=== PATIENT | male | born 1950 | race Caucasian/White ===

== ENCOUNTER 2019-01-06 12:50 | Inpatient (IN) | payer MEDICARE, BC ==
[2019-01-06] MEDS: Sodium Chloride 0.9% 10 ML Syringe FLUSH PRN (14:08)
[2019-01-06] MEDS: cefTRIAXone 1 GM Vial IVPUSH SCH (14:08)
[2019-01-06] MEDS: Aspirin 81 MG Tab.Chew PO SCH (14:09)
[2019-01-06] MEDS ORDERED: hydrOXYzine HCl 25 MG Tab PO PRN (17:18)
[2019-01-06] MEDS ORDERED: Nitroglycerin 0.4 MG Tab.SL SL PRN (17:30)
[2019-01-06] MEDS: ClonazePAM 0.5 MG Tab PO SCH (20:59)
[2019-01-06] MEDS: Gabapentin 100 MG Cap PO SCH (20:59)
[2019-01-06] MEDS: Losartan 50 MG Tab PO SCH (20:59)
[2019-01-06] MEDS: hydrALAZINE 50 MG Tab PO SCH (20:59)
[2019-01-06] MEDS: metFORMIN 500 MG Tab PO SCH (20:59)
[2019-01-06] MEDS: atorvaSTATin 10 MG Tab PO SCH (21:00)
[2019-01-07] MEDS ORDERED: Labetalol 100 MG Tab PO SCH (09:00)
[2019-01-07 09:29] LABS: ANION GAP 15.1 mmol/L (5-15); CHLORIDE,CL 99 mmol/L (98-115); SODIUM,NA 137 mmol/L (136-145)
[2019-01-07] MEDS: Losartan 50 MG Tab PO SCH ×2 (09:49→20:21)
[2019-01-07] MEDS: Gabapentin 100 MG Cap PO SCH ×2 (09:50→20:22)
[2019-01-07] MEDS: hydrALAZINE 50 MG Tab PO SCH ×3 (09:50→20:20)
[2019-01-07] MEDS: metFORMIN 500 MG Tab PO SCH ×2 (09:50→20:21)
[2019-01-07] MEDS: predniSONE 5 MG Tab PO SCH (09:50)
[2019-01-07] MEDS: Aspirin 81 MG Tab.Chew PO SCH (09:51)
[2019-01-07] MEDS: Clopidogrel 75 MG Tab PO SCH (09:52)
[2019-01-07] MEDS: Pantoprazole 40 MG Tab.CR PO SCH (09:53)
[2019-01-07] MEDS: Liraglutide (rDNA Origin) 0.6 MG/0.1 ML 3 ML Pen SUBCUT SCH (09:53)
[2019-01-07] MEDS: amLODIPine 5 MG Tab PO SCH (09:53)
--- NOTE | 2019-01-07 11:34 | CR ---
[id number] RAD/RAD Ankle Right 3V Min; [id number] RAD/RAD Foot Right 3V Min Exam: RAD Foot Right 3V Min, RAD Ankle Right 3V Min Indication:POSTERIOR ANKLE AND HEEL PAIN. Comparison: No prior imaging for comparison. Discussion: Mild changes of osteoarthritis throughout the foot including the tibiotalar joint. 4 mm osteochondral body versus accessory ossicle projecting over the posterior recess of the tibiotalar joint on lateral view. Chronic appearing small avulsion fragments overlying the lateral recess of the ankle mortise. Soft tissue swelling in the lower leg extending into the hindfoot extending along the medial aspect of the hindfoot. No evidence of an acute fracture. No AVN or erosive changes. Diffuse bone demineralization. Impression: Soft tissue swelling without evidence of an acute fracture. Other findings are described above. Fidel De Dios MD 01/07/19 1046 Thank you for allowing us to participate in the care of your patient.
[2019-01-07] MEDS: FLAXSEED OIL 1000 MG PO SCH (11:49)
--- NOTE | 2019-01-07 11:49 | PCM.PN ---
- General Info Date of Service: 01/07/19 Functional Status: Reports: Pain Controlled, Tolerating Diet, Ambulating, Urinating. Denies: New Symptoms - Review of Systems General: Denies: Fever, Chills HEENT: Denies: Headaches Pulmonary: Denies: Shortness of Breath Cardiovascular: Denies: Chest Pain, Edema Gastrointestinal: Reports: Decreased Appetite, Nausea. Denies: Vomiting Genitourinary: Reports: No Symptoms Musculoskeletal: Reports: Other (right ankle and heel pain with swelling) Skin: Reports: Other (erythematous blister to right inner ankle with small area redness below knee and redness in right medial thigh; chronic callus to heels with cracking) Neurological: Denies: Dizziness, Headache Psychiatric: Reports: No Symptoms - Patient Data Vitals - Most Recent: Last Vital Signs Temp 97.7 F 01/07/19 06:21 Pulse 95 01/07/19 06:21 Resp 16 01/07/19 06:21 BP 129/84 01/07/19 09:53 Pulse Ox 95 01/07/19 06:21 Weight - Most Recent: 211 lb 4.8 oz I&O - Last 24 Hours: Intake & Output 01/06/19 01/07/19 01/07/19 22:59 06:59 14:59 Intake Total 1100 150 Balance 1100 150 Lab Results Last 24 Hours: Laboratory Results - last 24 hr 01/07/19 01/07/19 Range/Units 08:45 08:45 WBC 13.67 H (5.00-10.00) 10^3/uL RBC 4.58 (4.50-6.00) 10^6/uL Hgb 13.4 (13.0-17.0) g/dL Hct 40.5 (40.0-52.0) % MCV 88.4 (82.0-92.0) fL MCH 29.3 (27.0-31.0) pg MCHC 33.1 (32.0-36.0) g/dL RDW 14.3 (11.5-14.5) % Plt Count 187 (150-400) 10^3/uL MPV 10.4 (7.4-10.4) fL Immature Gran % (Auto) 0.4 (0.0-5.0) % Neut % (Auto) 83.0 H (50.0-70.0) % Lymph % (Auto) 7.4 L (20.0-40.0) % Bradford % (Auto) 7.8 (2.0-8.0) % Eos % (Auto) 1.2 (1.0-3.0) % Baso % (Auto) 0.2 (0.0-1.0) % Immature Gran # (Auto) 0.06 (0.00-0.50) 10^3/uL Neut # (Auto) 11.35 H (2.50-7.00) 10^3/uL Lymph # (Auto) 1.01 (1.00-4.00) 10^3/uL Bradford # (Auto) 1.06 H (0.10-0.80) 10^3/uL Eos # (Auto) 0.16 (0.10-0.30) 10^3/uL Baso # (Auto) 0.03 (0.00-0.10) 10^3/uL Sodium 137 (136-145) mmol/L Potassium 4.2 (3.3-5.3) mmol/L Chloride 99 (98-115) mmol/L Carbon Dioxide 27.1 (21.0-32.0) mmol/L Anion Gap 15.1 H (5-15) mmol/L BUN 17 (6-25) mg/dL Creatinine 0.86 (0.51-1.17) mg/dL Est Cr Clr Drug Dosing 82.53 mL/min Estimated GFR (MDRD) > 60 mL/min Glucose 187 H (75 - 99) mg/dL Calcium 9.3 (8.7-10.3) mg/dL Total Bilirubin 1.0 (0.2-1.0) mg/dL AST 16 (15-37) U/L ALT 30 (12-78) U/L Alkaline Phosphatase 57 (46-116) IU/L Total Protein 7.3 (6.4-8.2) g/dL Albumin 3.01 (3.00-4.80) g/dL Med Orders - Current: Current Medications Amlodipine Besylate (Norvasc) 10 mg PO DAILY [facility] Last Admin: 01/07/19 09:53 Dose: 10 mg Aspirin (Halfprin) 81 mg PO WITHBREAKFAST [facility] Atorvastatin Calcium (Lipitor) 20 mg PO BEDTIME [facility] Last Admin: 01/06/19 21:00 Dose: 20 mg Ceftriaxone Sodium (Rocephin) 1 gm IVPUSH Q24H [facility] Last Admin: 01/06/19 14:08 Dose: 1 gm Clonazepam (Klonopin) 0.5 mg PO BEDTIME [facility] Last Admin: 01/06/19 20:59 Dose: 0.5 mg Clopidogrel Bisulfate (Plavix) 75 mg PO DAILY [facility] Last Admin: 01/07/19 09:52 Dose: 75 mg Gabapentin (Neurontin) 100 mg PO BID [facility] Last Admin: 01/07/19 09:50 Dose: 100 mg Hydralazine HCl (Apresoline) 50 mg PO TID [facility] Last Admin: 01/07/19 09:50 Dose: 50 mg Hydroxyzine HCl (Atarax) 25 mg PO QID PRN PRN Reason: Itching Liraglutide (Victoza) 1.2 mg SUBCUT DAILY [facility] Last Admin: 01/07/19 09:53 Dose: 1.2 mg Losartan Potassium (Cozaar) 50 mg PO BID [facility] Last Admin: 01/07/19 09:49 Dose: 50 mg Metformin HCl (Glucophage) 500 mg PO BID [facility] Last Admin: 01/07/19 09:50 Dose: 500 mg Nebivolol (Bystolic) 20 mg PO BEDTIME [facility] Last Admin: 01/06/19 21:00 Dose: 20 mg Nitroglycerin (Nitrostat) 0.4 mg SL ASDIRECTED PRN PRN Reason: Chest Pain Pantoprazole Sodium (Protonix) 40 mg PO DAILY [facility] Last Admin: 01/07/19 09:53 Dose: 40 mg Etodolac Er 500mg (Tab - Ptom) 1 each PO BID [facility] Leflunomide 10mg Tab (- Ptom) 1 each PO BEDTIME [facility] Flaxseed Oil 1,000mg (Cap - Ptom) 1 each PO DAILY [facility] Prednisone (Prednisone) 2.5 mg PO DAILY [facility] Last Admin: 01/07/19 09:50 Dose: 2.5 mg Sodium Chloride (Saline Flush) 10 ml FLUSH Q8HR PRN PRN Reason: keep vein open Last Admin: 01/06/19 14:08 Dose: 10 ml Discontinued Medications Aspirin (Aspirin) 324 mg PO DAILY [facility] Last Admin: 01/07/19 09:51 Dose: 162 mg Leflunomide (Arava) 10 mg PO BEDTIME [facility] Last Admin: 01/06/19 21:02 Dose: Not Given Naproxen (Naproxen Sodium) 220 mg PO BID PRN PRN Reason: Pain - Exam Quality Assessment: No: Supplemental Oxygen, Urine Catheter, DVT Prophylaxis ( Score 2. On ASA/plavix), Skin Breakdown General: Alert, Oriented, Cooperative, No Acute Distress Lungs: Clear to Auscultation, Normal Respiratory Effort Cardiovascular: Regular Rate, Regular Rhythm, No Murmurs Extremities: No Pedal Edema Peripheral Pulses: 2+: Dorsalis Pedis (L), Dorsalis Pedis (R) Skin: Warm, Dry, Intact, Other (large area of erythemaous blister/macular lesion to medial malleolus, tender, several areas numb from prior back surgery, quarter sized erythematous macule to medial mid-ocampo, mild erythema to inner groin, large cracks x 2 to heel) Neurological: Normal Speech Psy/Mental Status: Alert, Normal Affect, Normal Mood - Problem List Review Problem List Initiated/Reviewed/Updated: Yes - My Orders Last 24 Hours: My Active Orders 01/07/19 09:59 Foot Comp Min 3V Rt [CR] Routine 01/07/19 11:00 Patient's Own Medication [Ptom] 1 each PO BID 01/08/19 05:11 CBC WITH AUTO DIFF [HEME] AM ESR [SEDIMENTATION RATE MANUAL] [HEME] AM 01/08/19 08:00 Aspirin [Halfprin] 81 mg PO WITHBREAKFAST - Plan Plan:: HPI: This is a 68 year old male who presented to the [facility] with concerns of right leg pain, swelling, and redness. Patient reports over the weekend he used his right heel to kick a frozen PTO off a truck. The following day he noticed pain and swelling to the ankle and then subsequently it started turning red. He reports he had chills and vomiting the day prior to admission. He has a history of discogenic disease in the lumbar region with previous fusion of L4-5 and L5-S1 levels. He has limited sensation in his right leg and foot d/t this. Pertinent Clinic work-up: WBC 14.6 with left shift ESR 57 BC x 2 pending US right lower extremity: No evidence of DVT. Patient was subsequently admitted for IV antibiotics and further monitoring. Primary Assessment/Plan: Right leg cellulitis. WBC 13.67 with left shift. CMP unremarkable. Erythematous areas marked and dated. Continue IV rocephin. Right lower ankle/heel pain. Xray of ankle & foot obtained which noted "Soft tissue swelling without evidence of an acute fracture. Other findings as described above." No AVN or erosive changes, mild OA throughout foot, chronic small avulsion fragments overlying lateral recess of ankle mortise. Continue with etodolac BID and ice/elevation/compression PRN. Secondary Assessment/Plan: HTN, essential. On amlodipine 10 mg daily, hydralazine 50 mg TID, losartan 50 mg BID, bystolic 20 mg at HS. Peripheral edema. On lasix 20 mg daily PRN. CAD. On ASA 81 mg daily, plavix 75 mg daily. LINDA. HLD, mixed. On lipitor 20 mg at HS, fish oil 1000 mg daily. LDL 71 (12/14/18). T2DM. On victoza 1.2 mg daily, metformin 500 mg BID. A1c 6.6 (12/14/18). Obesity. Seropositive RA. On etodolac 500 mg BID, leflunomide 10 mg daily, prednisone 2.5 mg daily. Follows with rheumatology. S/P lumbar fusion. Peripheral neuropathy. On gabapentin 100 mg BID. Lumbar discogenic disc disease. REID. On clonazepam 0.5 mg at HS, hydroxyzine 25 mg QID PRN. GERD. On lansoprazole 15 mg daily. DVT prophylaxis. Score 2. Overall plan: Continue with IV rocephin. May need to consider adding second agent given diabetic status. Recheck labs in AM.
[2019-01-07] MEDS: ETODOLAC 500 MG PO SCH ×2 (11:51→20:23)
[2019-01-07] MEDS: cefTRIAXone 1 GM Vial IVPUSH SCH (14:24)
[2019-01-07] MEDS: ClonazePAM 0.5 MG Tab PO SCH (20:22)
[2019-01-07] MEDS: atorvaSTATin 10 MG Tab PO SCH (20:22)
[2019-01-07] MEDS: LEFLUNOMIDE 10 MG PO SCH (20:23)
[2019-01-08] MEDS: Gabapentin 100 MG Cap PO SCH ×2 (08:21→20:18)
[2019-01-08] MEDS: amLODIPine 5 MG Tab PO SCH (08:21)
[2019-01-08] MEDS: metFORMIN 500 MG Tab PO SCH ×2 (08:21→20:18)
[2019-01-08] MEDS: predniSONE 5 MG Tab PO SCH (08:21)
[2019-01-08] MEDS: Aspirin 81 MG Tab.EC PO SCH (08:21)
[2019-01-08] MEDS: Clopidogrel 75 MG Tab PO SCH (08:21)
[2019-01-08] MEDS: hydrALAZINE 50 MG Tab PO SCH ×3 (08:21→20:15)
[2019-01-08] MEDS: Losartan 50 MG Tab PO SCH ×2 (08:21→20:18)
[2019-01-08] MEDS: Pantoprazole 40 MG Tab.CR PO SCH (08:22)
[2019-01-08] MEDS: ETODOLAC 500 MG PO SCH ×2 (08:24→20:20)
[2019-01-08] MEDS: Liraglutide (rDNA Origin) 0.6 MG/0.1 ML 3 ML Pen SUBCUT SCH (08:25)
[2019-01-08] MEDS ORDERED: predniSONE 5 MG Tab PO SCH (09:00)
[2019-01-08] MEDS ORDERED: predniSONE 5 MG Tab PO ONE (10:07)
[2019-01-08] MEDS: FLAXSEED OIL 1000 MG PO SCH (10:32)
--- NOTE | 2019-01-08 12:46 | PCM.PN ---
- General Info Date of Service: 01/08/19 Functional Status: Reports: Pain Controlled, Tolerating Diet, Ambulating, Urinating. Denies: New Symptoms - Review of Systems General: Denies: Fever, Chills Pulmonary: Denies: Shortness of Breath Cardiovascular: Denies: Chest Pain, Edema Gastrointestinal: Denies: Abdominal Pain, Nausea Musculoskeletal: Reports: Shoulder Pain (right shoulder), Leg Pain (right), Foot Pain (right) Skin: Reports: Other (blister area continues with improved erythema) Neurological: Denies: Dizziness, Headache Psychiatric: Reports: No Symptoms - Patient Data Vitals - Most Recent: Last Vital Signs Temp 98.1 F 01/08/19 07:00 Pulse 80 01/08/19 07:00 Resp 16 01/08/19 07:00 BP 123/76 01/08/19 08:21 Pulse Ox 94 L 01/08/19 07:00 Weight - Most Recent: 211 lb 4.8 oz I&O - Last 24 Hours: Intake & Output 01/07/19 01/08/19 01/08/19 22:59 06:59 14:59 Intake Total 700 150 Balance 700 150 Lab Results Last 24 Hours: Laboratory Results - last 24 hr 01/08/19 Range/Units 07:20 WBC 9.25 (5.00-10.00) 10^3/uL RBC 4.43 L (4.50-6.00) 10^6/uL Hgb 13.1 (13.0-17.0) g/dL Hct 39.1 L (40.0-52.0) % MCV 88.3 (82.0-92.0) fL MCH 29.6 (27.0-31.0) pg MCHC 33.5 (32.0-36.0) g/dL RDW 13.9 (11.5-14.5) % Plt Count 198 (150-400) 10^3/uL MPV 10.7 H (7.4-10.4) fL Immature Gran % (Auto) 0.4 (0.0-5.0) % Neut % (Auto) 75.1 H (50.0-70.0) % Lymph % (Auto) 11.7 L (20.0-40.0) % Sutter % (Auto) 8.3 H (2.0-8.0) % Eos % (Auto) 4.2 H (1.0-3.0) % Baso % (Auto) 0.3 (0.0-1.0) % Immature Gran # (Auto) 0.04 (0.00-0.50) 10^3/uL Neut # (Auto) 6.94 (2.50-7.00) 10^3/uL Lymph # (Auto) 1.08 (1.00-4.00) 10^3/uL [place]utter # (Auto) 0.77 (0.10-0.80) 10^3/uL Eos # (Auto) 0.39 H (0.10-0.30) 10^3/uL Baso # (Auto) 0.03 (0.00-0.10) 10^3/uL ESR 90 H (0-15) mm/hr Deng Results Last 24 Hours: Microbiology 01/06/19 15:00 Gram Stain - Final Wound Med Orders - Current: Current Medications Amlodipine Besylate (Norvasc) 10 mg PO DAILY [facility] Last Admin: 01/08/19 08:21 Dose: 10 mg Aspirin (Halfprin) 81 mg PO WITHBREAKFAST [facility] Last Admin: 01/08/19 08:21 Dose: 81 mg Atorvastatin Calcium (Lipitor) 20 mg PO BEDTIME [facility] Last Admin: 01/07/19 20:22 Dose: 20 mg Ceftriaxone Sodium (Rocephin) 1 gm IVPUSH Q24H [facility] Last Admin: 01/07/19 14:24 Dose: 1 gm Clonazepam (Klonopin) 0.5 mg PO BEDTIME [facility] Last Admin: 01/07/19 20:22 Dose: 0.5 mg Clopidogrel Bisulfate (Plavix) 75 mg PO DAILY [facility] Last Admin: 01/08/19 08:21 Dose: 75 mg Gabapentin (Neurontin) 100 mg PO BID [facility] Last Admin: 01/08/19 08:21 Dose: 100 mg Hydralazine HCl (Apresoline) 50 mg PO TID [facility] Last Admin: 01/08/19 08:21 Dose: 50 mg Hydroxyzine HCl (Atarax) 25 mg PO QID PRN PRN Reason: Itching Liraglutide (Victoza) 1.2 mg SUBCUT DAILY [facility] Last Admin: 01/08/19 08:25 Dose: 1.2 mg Losartan Potassium (Cozaar) 50 mg PO BID [facility] Last Admin: 01/08/19 08:21 Dose: 50 mg Metformin HCl (Glucophage) 500 mg PO BID [facility] Last Admin: 01/08/19 08:21 Dose: 500 mg Nebivolol (Bystolic) 20 mg PO BEDTIME [facility] Last Admin: 01/07/19 20:21 Dose: 20 mg Nitroglycerin (Nitrostat) 0.4 mg SL ASDIRECTED PRN PRN Reason: Chest Pain Etodolac Er 500mg (Tab - Ptom) 1 each PO BID [facility] Last Admin: 01/08/19 08:24 Dose: 1 each Leflunomide 10mg Tab (- Ptom) 1 each PO BEDTIME [facility] Last Admin: 01/07/19 20:23 Dose: 1 each Flaxseed Oil 1,000mg (Cap - Ptom) 1 each PO DAILY [facility] Last Admin: 01/08/19 10:32 Dose: [address] (Mg Caps Own Med) 0 each PO ACBREAKFAST [facility] Prednisone (Prednisone) 7.5 mg PO WITHBREAKFAST [facility] Sodium Chloride (Saline Flush) 10 ml FLUSH Q8HR PRN PRN Reason: keep vein open Last Admin: 01/06/19 14:08 Dose: 10 ml Discontinued Medications Aspirin (Aspirin) 324 mg PO DAILY [facility] Last Admin: 01/07/19 09:51 Dose: 162 mg Leflunomide (Arava) 10 mg PO BEDTIME [facility] Last Admin: 01/06/19 21:02 Dose: Not Given Naproxen (Naproxen Sodium) 220 mg PO BID PRN PRN Reason: Pain Pantoprazole Sodium (Protonix) 40 mg PO DAILY [facility] Last Admin: 01/08/19 08:22 Dose: 40 mg Prednisone (Prednisone) 2.5 mg PO DAILY [facility] Last Admin: 01/08/19 08:21 Dose: 2.5 mg Prednisone (Prednisone) 2.5 mg PO WITHBREAKFAST [facility] Last Admin: 01/08/19 10:15 Dose: Not Given Prednisone (Prednisone) 2.5 mg PO WITHBREAKFAST [facility] Prednisone (Prednisone) 2.5 mg PO ONETIME ONE Stop: 01/08/19 10:08 Last Admin: 01/08/19 10:32 Dose: 2.5 mg - Exam Quality Assessment: No: Supplemental Oxygen, Urine Catheter, DVT Prophylaxis, Skin Breakdown General: Alert, Oriented, Cooperative, No Acute Distress Lungs: Clear to Auscultation, Normal Respiratory Effort Cardiovascular: Regular Rate, Regular Rhythm, No Murmurs Extremities: No Pedal Edema, Limited Range of Motion (of right shoulder d/t pain ), Other (tenderness elicited over right bicep and ac joint) Skin: Warm, Dry, Intact, Other (right medial malleolus: erythematous blister/ macular lesion present with surrounding erythema; erythema has improved at this area. Right medial thigh and ocampo: erythema greatly improved. Right heel: two cracks/fissures present with small amount of black coloring noted to most posterior one, rough callouses present. ) Neurological: Normal Speech Psy/Mental Status: Alert, Normal Affect, Normal Mood - Problem List Review Problem List Initiated/Reviewed/Updated: Yes - My Orders Last 24 Hours: My Active Orders 01/08/19 08:00 Aspirin [Halfprin] 81 mg PO WITHBREAKFAST 01/08/19 09:23 Communication Order [RC] ROUTINE 01/09/19 05:11 CBC WITH AUTO DIFF [HEME] AM 01/09/19 07:30 Patient's Own Medication [Ptom] 0 each PO ACBREAKFAST 01/09/19 08:00 predniSONE 7.5 mg PO WITHBREAKFAST - Plan Plan:: HPI: This is a 68 year old male who presented to the [facility] with concerns of right leg pain, swelling, and redness. Patient reports over the weekend he used his right heel to kick a frozen PTO off a truck. The following day he noticed pain and swelling to the ankle and then subsequently it started turning red. He reports he had chills and vomiting the day prior to admission. He has a history of discogenic disease in the lumbar region with previous fusion of L4-5 and L5-S1 levels. He has limited sensation in his right leg and foot d/t this. Pertinent Clinic work-up: WBC 14.6 with left shift ESR 57 BC x 2 pending US right lower extremity: No evidence of DVT. Patient was subsequently admitted for IV antibiotics and further monitoring. Primary Assessment/Plan: Right leg cellulitis, improving. WBC 9.25 with left shift. BC x 2 showing no growth. Gram stain negative. Erythematous areas marked and dated. Continue IV rocephin. Concern for underlying peripheral arterial disease. Will need NIMA as outpatient. CBC in AM. Right lower ankle/heel pain. Xray of ankle & foot obtained which noted "Soft tissue swelling without evidence of an acute fracture. Other findings as described above." No AVN or erosive changes, mild OA throughout foot, chronic small avulsion fragments overlying lateral recess of ankle mortise. Continue with etodolac BID and ice/elevation/compression PRN. RA flare-up of right shoulder. ESR 90. Patient typically takes 5 mg daily of prednisone for 2-3 days during a flare-up so will provide this for him. May use heat/ice PRN. Continue etodolac and leflunomide as before. Follows with rheumatology. Secondary Assessment/Plan: HTN, essential. On amlodipine 10 mg daily, hydralazine 50 mg TID, losartan 50 mg BID, bystolic 20 mg at HS. Peripheral edema. On lasix 20 mg daily PRN. CAD. On ASA 81 mg daily, plavix 75 mg daily. LINDA. HLD, mixed. On lipitor 20 mg at HS, fish oil 1000 mg daily. LDL 71 (12/14/18). T2DM. On victoza 1.2 mg daily, metformin 500 mg BID. A1c 6.6 (12/14/18). Obesity. S/P lumbar fusion. Peripheral neuropathy. On gabapentin 100 mg BID. Lumbar discogenic disc disease. REID. On clonazepam 0.5 mg at HS, hydroxyzine 25 mg QID PRN. GERD. On lansoprazole 15 mg daily. DVT prophylaxis. Score 2. Overall plan: Continue with IV rocephin. Will likely be able to be discharged tomorrow on oral antibiotics with close follow-up.
[2019-01-08] MEDS: cefTRIAXone 1 GM Vial IVPUSH SCH (14:39)
[2019-01-08] MEDS: Sodium Chloride 0.9% 10 ML Syringe FLUSH PRN (14:43)
[2019-01-08] MEDS: atorvaSTATin 10 MG Tab PO SCH (20:18)
[2019-01-08] MEDS: ClonazePAM 0.5 MG Tab PO SCH (20:18)
[2019-01-08] MEDS: LEFLUNOMIDE 10 MG PO SCH (20:20)
[2019-01-09] MEDS ORDERED: LANSOPRAZOLE 15 MG PO SCH (07:30)
[2019-01-09] MEDS ORDERED: predniSONE 5 MG Tab PO SCH ×2 (08:00)
[2019-01-09] MEDS ORDERED: predniSONE 10 MG Tab PO SCH (08:00)
[2019-01-09] MEDS: Gabapentin 100 MG Cap PO SCH (08:40)
[2019-01-09] MEDS: Clopidogrel 75 MG Tab PO SCH (08:40)
[2019-01-09] MEDS: hydrALAZINE 50 MG Tab PO SCH (08:40)
[2019-01-09] MEDS: Aspirin 81 MG Tab.EC PO SCH (08:40)
[2019-01-09] MEDS: Losartan 50 MG Tab PO SCH (08:40)
[2019-01-09] MEDS: metFORMIN 500 MG Tab PO SCH (08:40)
[2019-01-09] MEDS: FLAXSEED OIL 1000 MG PO SCH (08:41)
[2019-01-09] MEDS: amLODIPine 5 MG Tab PO SCH (08:41)
[2019-01-09] MEDS: ETODOLAC 500 MG PO SCH (08:41)
[2019-01-09] MEDS: Liraglutide (rDNA Origin) 0.6 MG/0.1 ML 3 ML Pen SUBCUT SCH (08:43)
--- NOTE | 2019-01-09 11:20 | PCM.DCSUM1 ---
Discharge Summary - Discharge Data Discharge Date: 01/09/19 Discharge Disposition: Home, Self-Care 01 Condition: Good - Referral to Home Health Primary Care Physician: Lilly Maldonado MD - Patient Instructions Diet: Heart Healthy Diet, Diabetic Diet Activity: As Tolerated, Elevate Extremity, No Strenuous Activities, Rest and Relax Today Driving: Do Not Drive Showering/Bathing: May Shower, No Tub Bathing/Swimming Wound/Incision Care: Change Dressing Daily (use telfa (non-stick dressing); cleanse with warm water and soap; do not scrub area.) Notify Provider of: Fever (101 degrees F or higher), Increased Pain, Swelling and Redness, Drainage (increased amount or purulent (infectious) looking) Other/Special Instructions: You will be set up for an ankle brachial index (NIMA ) test of the right leg to assess for aterial disease at [facility]. - Discharge Plan *PRESCRIPTION DRUG MONITORING PROGRAM REVIEWED*: Not Applicable *COPY OF PRESCRIPTION DRUG MONITORING REPORT IN PATIENT CARLEEN: Not Applicable Prescriptions/Med Rec: cephALEXin [Keflex] 500 mg PO Q12H 3 Days #6 cap Home Medications: Home Meds Aspirin [Adult Low Dose Aspirin EC] 81 mg PO DAILY 01/06/19 [History] Cinnamon Bark [Cinnamon] 500 mg PO DAILY 01/06/19 [History] Clopidogrel [Plavix] 75 mg PO DAILY 01/06/19 [History] Flaxseed Oil [Flax Oil] 1,000 mg PO DAILY 01/06/19 [History] Furosemide [Lasix] 20 mg PO DAILY PRN 01/06/19 [History] Gabapentin [Neurontin] 100 mg PO BID 01/06/19 [History] Lansoprazole [Prevacid] 15 mg PO DAILY 01/06/19 [History] Leflunomide [Arava] 10 mg PO BEDTIME 01/06/19 [History] Liraglutide [Victoza] 1.2 mg SUBCUT DAILY 01/06/19 [History] Lodine Xl 500 mg PO BID 01/06/19 [History] Losartan [Cozaar] 50 mg PO BID 01/06/19 [History] Nebivolol HCl [Bystolic] 20 mg PO BEDTIME 01/06/19 [History] Nitroglycerin [Nitrostat] 0.4 mg SL ASDIRECTED 01/06/19 [History] [place]-3/DHA/Epa/Fish Oil [Fish Oil 1,000 mg Softgel] 1,000 mg PO DAILY 01/06/19 [History] Rup Rub 1 applic TOP TID PRN 01/06/19 [History] Sildenafil [Revatio] 60 - 100 mg PO ASDIRECTED PRN 01/06/19 [History] amLODIPine Besylate [Norvasc] 10 mg PO DAILY 01/06/19 [History] atorvaSTATin [Lipitor] 20 mg PO BEDTIME 01/06/19 [History] clonazePAM [Klonopin] 0.5 mg PO BEDTIME 01/06/19 [History] hydrALAZINE [Apresoline] 50 mg PO TID 01/06/19 [History] hydrOXYzine HCl [hydrOXYzine] 25 mg PO QID PRN 01/06/19 [History] metFORMIN HCl [Metformin HCl] 500 mg PO BID 01/06/19 [History] Naproxen Sodium [Aleve] 220 mg PO BID PRN #0 01/09/19 [Rx] cephALEXin [Keflex] 500 mg PO Q12H 3 Days #6 cap 01/09/19 [Rx] predniSONE [Prednisone] 2.5 mg PO DAILY #0 01/09/19 [Rx] Referrals: Sol Rollins HAIR ASSISTANT [Ordering Only Provider] - 01/12/19 (Please call and schedule an appointment during clinic hours. ) - Discharge Summary/Plan Comment DC Time >30 min.: Yes Discharge Summary/Plan Comment: Date of admission: 01/06/19 Date of discharge: 01/09/19 Admitting diagnosis: Primary: Acute cellulitis of right leg, Acute right ankle & heel pain Secondary: Seropositive RA, Essential HTN, Mixed HLD, CAD, LINDA, T2DM, Obesity , S/P lumbar fusion, Lumbar discogenic disc disease, REID, GERD Final diagnosis: Primary: Acute cellulitis of right leg, improving; Rule out peripheral arterial disease of right leg; Acute right ankle & heel pain, improving; Acute seropositive RA flare-up of shoulders, improving. Secondary: Seropositive RA, Essential HTN, Mixed HLD, CAD, LINDA, T2DM, Obesity , S/P lumbar fusion, Lumbar discogenic disc disease, REID, GERD Procedures performed: None Brief History: This is a 68 year old male who presented to the [facility] with concerns of right leg pain, swelling, and redness. Patient reports over the weekend he used his right heel to kick a frozen PTO off a truck. The following day he noticed pain and swelling to the ankle and then subsequently it started turning red. He reports he had chills and vomiting the day prior to admission. He has a history of discogenic disease in the lumbar region with previous fusion of L4-5 and L5-S1 levels. He has limited sensation in his right leg and foot d/t this. Pertinent Clinic work-up: WBC 14.6 with left shift ESR 57 BC x 2 pending US right lower extremity: No evidence of DVT. Patient was subsequently admitted for IV antibiotics and further monitoring. Hospital Course: The patient's hospital course progressed as expected. He was given IV rocephin daily with improvement in WBC to 8.4 without neutrophilia. Blood cultures x 2 negative to date. He remained afebrile and hemodynamically stable. The day of discharge the blistered area of cellulitis did start to weep , but was not open. This was cleansed and covered with a telfa. He had mild compression of his extremity with an susanna wrap as well as elevation. Xray of ankle & foot obtained which noted "Soft tissue swelling without evidence of an acute fracture. Other findings as described above." No AVN or erosive changes, mild OA throughout foot, chronic small avulsion fragments overlying lateral recess of ankle mortise. He did not require an increase in pain medications beyond his typical etodolac BID. Patient did suffer an RA flare-up of his shoulder during hospitalization with an ESR of 90. Reported that he typically increases his daily prednisone to 5 mg daily for 2-3 days during flare-ups and this was done. New medications on discharge: -Keflex 500 mg po BID x 3 days (start on 01/10/19) Changes to home medications on discharge: -Prednisone 5 mg po daily x 1 more dose, then resume 2.5 mg daily dosing Regular home medications on discharge: -Norvasc 10 mg po daily -ASA 81 mg po daily -Lipitor 20 mg po at HS -Clonazepam 0.5 mg po at HS -Plavix 75 mg po daily -Etodolac ER 500 mg po BID -Flaxseed Oil 1000 mg po daily -Gabapentin 100 mg po BID -Hydroxyzine 25 mg po QID PRN -Hydralazine 50 mg po TID -Lansoprazole 15 mg po daily -Leflunomide 10 mg po at HS -Victoza 1.2 mg SQ daily -Losartan 50 mg po BID -Metformin 500 mg po BID -Bystolic 20 mg at HS -Nitroglycerin 0.4 mg SL PRN Condition, Treatment, & Final Disposition: The patient is in stable condition at the time of discharge. He will be discharged home with his . He will follow-up in the [facility] with Sol Rollins APRN, CNP on 01/12/19. Considerations at follow-up include re-evaluation of ESR level and to ensure NIMA for extremities has been scheduled. Order placed in outpatient chart today ( 01/09/19). - General Info Date of Service: 01/09/19 Functional Status: Reports: Pain Controlled, Tolerating Diet, Ambulating, Urinating. Denies: New Symptoms - Review of Systems General: Denies: Fever, Chills Pulmonary: Denies: Shortness of Breath Cardiovascular: Denies: Chest Pain, Edema Musculoskeletal: Reports: Shoulder Pain (bilateral shoulders), Leg Pain (right lower leg), Foot Pain (right ankle) Skin: Reports: Other (blister to right inner ankle is weeping) Neurological: Denies: Trouble Speaking Psychiatric: Reports: No Symptoms - Patient Data Vitals - Most Recent: Last Vital Signs Temp 97.3 F 01/09/19 06:31 Pulse 75 01/09/19 06:31 Resp 16 01/09/19 06:31 BP 129/81 01/09/19 08:41 Pulse Ox 96 01/09/19 06:31 Weight - Most Recent: 211 lb 4.8 oz I&O - Last 24 hours: Intake & Output 01/08/19 01/09/19 01/09/19 22:59 06:59 14:59 Intake Total 120 100 Balance 120 100 Lab Results - Last 24 hrs: Laboratory Results - last 24 hr 01/09/19 Range/Units 07:55 WBC 8.43 (5.00-10.00) 10^3/uL RBC 4.67 (4.50-6.00) 10^6/uL Hgb 13.6 (13.0-17.0) g/dL Hct 40.8 (40.0-52.0) % MCV 87.4 (82.0-92.0) fL MCH 29.1 (27.0-31.0) pg MCHC 33.3 (32.0-36.0) g/dL RDW 13.6 (11.5-14.5) % Plt Count 270 (150-400) 10^3/uL MPV 10.4 (7.4-10.4) fL Immature Gran % (Auto) 0.6 (0.0-5.0) % Neut % (Auto) 64.4 (50.0-70.0) % Lymph % (Auto) 16.5 L (20.0-40.0) % Barry % (Auto) 12.1 H (2.0-8.0) % Eos % (Auto) 5.8 H (1.0-3.0) % Baso % (Auto) 0.6 (0.0-1.0) % Immature Gran # (Auto) 0.05 (0.00-0.50) 10^3/uL Neut # (Auto) 5.43 (2.50-7.00) 10^3/uL Lymph # (Auto) 1.39 (1.00-4.00) 10^3/uL Barry # (Auto) 1.02 H (0.10-0.80) 10^3/uL Eos # (Auto) 0.49 H (0.10-0.30) 10^3/uL Baso # (Auto) 0.05 (0.00-0.10) 10^3/uL ELOISA Results - Last 24 hrs: Microbiology 01/06/19 15:00 Miscellaneous Reference Culture - Preliminary Wound Gram Stain - Final Med Orders - Current: Current Medications Amlodipine Besylate (Norvasc) 10 mg PO DAILY [facility] Last Admin: 01/09/19 08:41 Dose: 10 mg Aspirin (Halfprin) 81 mg PO WITHBREAKFAST [facility] Last Admin: 01/09/19 08:40 Dose: 81 mg Atorvastatin Calcium (Lipitor) 20 mg PO BEDTIME [facility] Last Admin: 01/08/19 20:18 Dose: 20 mg Ceftriaxone Sodium (Rocephin) 1 gm IVPUSH Q24H [facility] Last Admin: 01/08/19 14:39 Dose: 1 gm Clonazepam (Klonopin) 0.5 mg PO BEDTIME [facility] Last Admin: 11/16/19 20:18 Dose: 0.5 mg Clopidogrel Bisulfate (Plavix) 75 mg PO DAILY [facility] Last Admin: 01/09/19 08:40 Dose: 75 mg Gabapentin (Neurontin) 100 mg PO BID [facility] Last Admin: 01/09/19 08:40 Dose: 100 mg Hydralazine HCl (Apresoline) 50 mg PO TID [facility] Last Admin: 01/09/19 08:40 Dose: 50 mg Hydroxyzine HCl (Atarax) 25 mg PO QID PRN PRN Reason: Itching Liraglutide (Victoza) 1.2 mg SUBCUT DAILY [facility] Last Admin: 01/09/19 08:43 Dose: 1.2 mg Losartan Potassium (Cozaar) 50 mg PO BID [facility] Last Admin: 01/09/19 08:40 Dose: 50 mg Metformin HCl (Glucophage) 500 mg PO BID [facility] Last Admin: 01/09/19 08:40 Dose: 500 mg Nebivolol (Bystolic) 20 mg PO BEDTIME [facility] Last Admin: 01/08/19 20:17 Dose: 20 mg Nitroglycerin (Nitrostat) 0.4 mg SL ASDIRECTED PRN PRN Reason: Chest Pain Etodolac Er 500mg (Tab - Ptom) 1 each PO BID [facility] Last Admin: 01/09/19 08:41 Dose: 1 each Leflunomide 10mg Tab (- Ptom) 1 each PO BEDTIME [facility] Last Admin: 01/08/19 20:20 Dose: 1 each Flaxseed Oil 1,000mg (Cap - Ptom) 1 each PO DAILY [facility] Last Admin: 01/09/19 08:41 Dose: [address] (Mg Caps Own Med) 0 each PO ACBREAKFAST [facility] Last Admin: 01/09/19 07:34 Dose: 1 each Prednisone (Prednisone) 5 mg PO WITHBREAKFAST [facility] Last Admin: 01/09/19 08:40 Dose: 5 mg Sodium Chloride (Saline Flush) 10 ml FLUSH Q8HR PRN PRN Reason: keep vein open Last Admin: 01/08/19 14:43 Dose: 10 ml Discontinued Medications Aspirin (Aspirin) 324 mg PO DAILY [facility] Last Admin: 01/07/19 09:51 Dose: 162 mg Leflunomide (Arava) 10 mg PO BEDTIME [facility] Last Admin: 01/06/19 21:02 Dose: Not Given Naproxen (Naproxen Sodium) 220 mg PO BID PRN PRN Reason: Pain Pantoprazole Sodium (Protonix) 40 mg PO DAILY [facility] Last Admin: 01/08/19 08:22 Dose: 40 mg Prednisone (Prednisone) 2.5 mg PO DAILY [facility] Last Admin: 01/08/19 08:21 Dose: 2.5 mg Prednisone (Prednisone) 7.5 mg PO WITHBREAKFAST [facility] Prednisone (Prednisone) 2.5 mg PO WITHBREAKFAST [facility]AIL[facility] Last Admin: 01/08/19 10:15 Dose: Not Given Prednisone (Prednisone) 2.5 mg PO WITHBREAKFAST [facility] Prednisone (Prednisone) 2.5 mg PO ONETIME ONE Stop: 01/08/19 10:08 Last Admin: 01/08/19 10:32 Dose: 2.5 mg - Exam Quality Assessment: Reports: DVT Prophylaxis (on ASA/Plavix). Denies: Supplemental Oxygen, Urine Catheter, Skin Breakdown General: Reports: Alert, Oriented, Cooperative, No Acute Distress Lungs: Reports: Normal Respiratory Effort Extremities: No Pedal Edema Skin: Reports: Warm, Dry Wound/Incisions: Reports: Other (right medial malleolus: erythematous blister/ macule decreased in size with weeping of serous fluid at bottom aspect, minimal surrounding erythema with most pronounced above the site. Erythema of right medial ocampo and groin resolved. ) Neurological: Reports: Normal Speech Psy/Mental Status: Reports: Alert, Normal Affect, Normal Mood
[2019-01-09] MEDS: Sodium Chloride 0.9% 10 ML Syringe FLUSH PRN (13:07)
[2019-01-09] MEDS: cefTRIAXone 1 GM Vial IVPUSH SCH (13:07)
== END 2019-01-09 13:15 | disposition home or self-care (01) | DRG 603 ==
LOC: KA.MS 12:56
PROVIDERS: ADMIT Family Medicine; ATTEND Family Medicine
DX: L03.115 Cellulitis of right lower limb (principal); M05.9 Rheumatoid arthritis with rheumatoid factor, unspecified; I10 Essential (primary) hypertension; E78.5 Hyperlipidemia, unspecified; I25.10 Atherosclerotic heart disease of native coronary artery without angina pectoris; G47.33 Obstructive sleep apnea (adult) (pediatric); E11.9 Type 2 diabetes mellitus without complications; E66.9 Obesity, unspecified; M19.071 Primary osteoarthritis, right ankle and foot; K21.9 Gastro-esophageal reflux disease without esophagitis; I73.9 Peripheral vascular disease, unspecified; M51.37 Other intervertebral disc degeneration, lumbosacral region; Z79.899 Other long term (current) drug therapy; Z98.2 Presence of cerebrospinal fluid drainage device; Z88.0 Allergy status to penicillin; Z88.8 Allergy status to other drugs, medicaments and biological substances
CPT/HCPCS: 36415; 73610-RT; 73630-RT; 80053; 85025; 85651; 87070; 87205; A9270-GY; J0696; J3490